=== PATIENT | female | born 1950 | race Caucasian/White ===

== ENCOUNTER 2020-08-11 10:06 | Emergency (ER) | payer MEDICARE, OTHER ==
[2020-08-11] MEDS: Sodium Chloride 0.9% 10 ML Syringe FLUSH PRN ×2 (10:15→11:43)
[2020-08-11] MEDS ORDERED: cloNIDine 0.1 MG Tab PO ONE (10:24)
--- NOTE | 2020-08-11 10:29 | EDM.PDOC ---
ED HPI GENERAL MEDICAL PROBLEM - General Stated Complaint: HIGH BP Time Seen by Provider: 08/11/20 10:15 Source of Information: Reports: Patient History Limitations: Reports: No Limitations - History of Present Illness INITIAL COMMENTS - FREE TEXT/NARRATIVE: c/o inc'd BP not seen a doctor in several years, went to have 4 teeth extracted with oral surgeon in [place] last wk and BP was 200/158 with repeat 180/140, surgery was not done pending tx of BP pt says she has no PCP, went to Patti James at clinic this AM who sent pt here, BP 266/108 on arrival at ED says she feels fine, no BARNES had been on BP med in past, then last 75 lbs and med was stopped, has gained the wt back SH: never , no children, 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[employer], then worked 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 at [employer], retired 1y ago - Related Data Allergies Allergy/AdvReac Type Severity Reaction Status Date / Time Penicillins Allergy Other Verified 08/11/20 11:50 Home Meds: Home Meds amLODIPine [Norvasc] 5 mg PO DAILY #30 tab 08/11/20 [Rx] lisinopriL [Prinivil] 5 mg PO DAILY #30 tab 08/11/20 [Rx] ED ROS GENERAL - Review of Systems Review Of Systems: See Below Constitutional: Reports: No Symptoms HEENT: Reports: No Symptoms Respiratory: Reports: No Symptoms Cardiovascular: Reports: No Symptoms Endocrine: Reports: No Symptoms GI/Abdominal: Reports: No Symptoms : Reports: No Symptoms Musculoskeletal: Reports: No Symptoms Skin: Reports: No Symptoms Neurological: Reports: No Symptoms Psychiatric: Reports: No Symptoms Hematologic/Lymphatic: Reports: No Symptoms Immunologic: Reports: No Symptoms ED EXAM, GENERAL - Physical Exam Exam: See Below Exam Limited By: No Limitations General Appearance: Alert, WD/WN, No Apparent Distress Eye Exam: Bilateral Eye: EOMI, PERRL Ears: Hearing Grossly Normal Nose: Normal Inspection Throat/Mouth: Normal Inspection, Normal Lips, Normal Teeth, Normal Voice, No Airway Compromise Head: Atraumatic, Normocephalic Neck: Normal Inspection, Supple, Non-Tender, Full Range of Motion Respiratory/Chest: No Respiratory Distress, Lungs Clear, Normal Breath Sounds, Chest Non-Tender Cardiovascular: Regular Rate, Rhythm, No Edema, No Gallop, No Murmur GI/Abdominal: Soft, Non-Tender, No Distention Back Exam: Normal Inspection, Full Range of Motion, NT Extremities: Normal Inspection, Normal Range of Motion, Non-Tender, No Pedal Edema Neurological: Alert, Oriented, CN II-XII Intact, Normal Cognition, No Motor/Sensory Deficits Psychiatric: Normal Affect, Normal Mood Skin Exam: Warm, Dry, Intact, Normal Color, No Rash Lymphatic: No Adenopathy #1 Interpretation EKG Interpretation Comments: SR, EKG criteria for LAE and LVH c/w poorly controlled HTN, no comparison, no evidence acute ischemia Course - Vital Signs Last Recorded V/S: Last Vital Signs Temp 37.1 C 08/11/20 10:10 Pulse 96 08/11/20 10:10 Resp 18 08/11/20 10:10 BP 266/108 H 08/11/20 10:31 Pulse Ox 97 08/11/20 10:10 - Orders/Labs/Meds Orders: Active Orders 24 hr Category Date Time Status EKG Documentation Completion [RC] ASDIRECTED Care 08/11/20 10:25 Active GLYCOSYLATED HEMOGLOBIN,HGBA1C [CHEM] Stat Lab 08/11/20 12:29 Ordered EKG 12 Lead [EK] Routine Ther 08/11/20 10:24 Ordered Labs: Laboratory Tests 08/11/20 08/11/20 08/11/20 Range/Units 10:46 10:46 10:46 WBC 5.9 (3.0-10.3) x10-3/uL RBC 4.15 (3.60-5.20) x10(6)uL Hgb 13.4 (11.4-15.5) g/dL Hct 40.4 (34.2-48.2) % MCV 97.2 (76.7-100.5) fL MCH 32.3 (23.9-33.9) pg MCHC 33.3 (31.9-34.8) g/dL RDW 13.5 (12.3-16.5) % Plt Count 152 (151-488) x10(3)uL MPV 9.0 (7.1-12.4) fL Neut % (Auto) 81.4 H (30.8-76.2) % Lymph % (Auto) 9.3 L (18.4-52.1) % [place] % (Auto) 7.1 (4.4-15.7) % Eos % (Auto) 1.9 (0.6-8.1) % Baso % (Auto) 0.3 (0.2-1.5) % Neut # (Auto) 4.8 (1.5-6.3) x10-3/uL Lymph # (Auto) 0.5 L (1.0-4.4) x10-3/uL [place] # (Auto) 0.4 (0.3-1.0) x10-3/uL Eos # (Auto) 0.1 (0.0-0.8) x10-3/uL Baso # (Auto) 0.0 (0.0-0.1) x10-3/uL Sodium 141 (135-145) mmol/L Potassium 4.1 (3.5-5.3) mmol/L Chloride 102 (100-110) mmol/L Carbon Dioxide 27 (21-32) mmol/L BUN 29 H (7-18) mg/dL Creatinine 1.1 H (0.55-1.02) mg/dL Est Cr Clr Drug Dosing TNP Estimated GFR (MDRD) 49 L (>60) BUN/Creatinine Ratio 26.4 H (9-20) Glucose 160 H (80-116) mg/dL Calcium 9.1 (8.6-10.2) mg/dL Total Bilirubin 0.7 (0.1-1.3) mg/dL AST 15 (5-25) IU/L ALT 27 (12-36) U/L Alkaline Phosphatase 90 (56-112) IU/L Total Protein 7.3 (6.0-8.0) g/dL Albumin 4.0 (3.2-4.6) g/dL Globulin 3.3 g/dL Albumin/Globulin Ratio 1.2 TSH, Ultra Sensitive 1.81 (0.36-3.74) IU/mL Meds: Medications Discontinued Medications Generic Name Dose Route Start Last Admin Trade Name Freq PRN Reason Stop Dose Admin Clonidine HCl 0.1 mg 08/11/20 10:24 08/11/20 10:31 Clonidine 0.1 Mg Tab PO 08/11/20 10:25 0.1 mg ONETIME ONE Administration Diltiazem HCl 20 mg 08/11/20 11:19 08/11/20 11:40 Diltiazem 25 Mg/5 Ml Sdv IVPUSH 08/11/20 11:20 20 mg ONETIME ONE Administration - Re-Assessments/Exams Free Text/Narrative Re-Assessment/Exam: 08/11/20 12:39 BP did not change after clonidine 0.1 mg PO however, it quickly came down to 191/68 after dilt 20 mg IV as she does seem to respond well to meds, will begin amlodopine 5 mg and lisinopril 5 mg daily does not have refractory htn, rather has untreated longstanding essential htn risk of pheo or renovascular htn is low end stage injury to heart and kidneys d/w pt A1C pending pt agrees to close f/u with PCP Departure - Departure Time of Disposition: 12:31 Disposition: Home, Self-Care 01 Condition: Good Clinical Impression: Hypertensive urgency, Left atrial enlargement, Left ventricular hypertrophy by electrocardiogram, Renal failure, Hyperglycemia Prescriptions: amLODIPine [Norvasc] 5 mg PO DAILY #30 tab lisinopriL [Prinivil] 5 mg PO DAILY #30 tab Referrals: PCP,None [Primary Care Provider] - Additional Instructions: For blood pressure, take amlodipine 5 mg 1 tab daily. For blood pressure, take lisinopril 5 mg 1 tab daily. Begin those medications today. Rest for the next several days as it is common to feel tired while your body is readjusting to a lower blood pressure. Obtain a blood pressure cuff. Check your pressure at home 2 times a day, record the readings, and take them with you to your next appointment. See your doctor in 3 days for further evaluation. Return to Emergency Department if you are feeling worse or your systolic blood pressure is over 220 or your diastolic blood pressure is over 120 even when repeated twice. Sepsis Event Note (ED) - Focused Exam Vital Signs: Vital Signs Temp Pulse Resp BP BP Pulse Ox 08/11/20 10:31 266/108 H 08/11/20 10:10 37.1 C 96 18 266/108 H 97 - My Orders Last 24 Hours: My Active Orders 08/11/20 10:24 EKG 12 Lead [EK] Routine 08/11/20 10:25 EKG Documentation Completion [RC] ASDIRECTED 08/11/20 12:29 GLYCOSYLATED HEMOGLOBIN,HGBA1C [CHEM] Stat - Assessment/Plan Last 24 Hours: My Active Orders 08/11/20 10:24 EKG 12 Lead [EK] Routine 08/11/20 10:25 EKG Documentation Completion [RC] ASDIRECTED 08/11/20 12:29 GLYCOSYLATED HEMOGLOBIN,HGBA1C [CHEM] Stat
[2020-08-11] MEDS ORDERED: Diltiazem 25 MG/5 ML SDV IVPUSH ONE (11:19)
== END 2020-08-11 13:05 | disposition home or self-care (01) ==
LOC: FB.ED 10:06
DX: I16.0 Hypertensive urgency (principal); I77.89 Other specified disorders of arteries and arterioles; R94.31 Abnormal electrocardiogram [ECG] [EKG]; N19 Unspecified kidney failure; R73.9 Hyperglycemia, unspecified; Z79.899 Other long term (current) drug therapy; Z88.0 Allergy status to penicillin
CPT/HCPCS: 36415; 80053; 83036; 84443; 85025; 93005; 96374; 99283; A9270; J3490

== ENCOUNTER 2020-08-12 10:51 | Emergency (ER) | payer MEDICARE, OTHER ==
[2020-08-12] MEDS ORDERED: Labetalol 20 MG/4 ML Syringe IVPUSH PRN (11:22)
--- NOTE | 2020-08-12 11:47 | EDM.PDOC ---
ED HPI GENERAL MEDICAL PROBLEM - General Chief Complaint: Cardiovascular Problem Stated Complaint: HIGH BP Time Seen by Provider: 08/12/20 10:55 Source of Information: Reports: Patient History Limitations: Reports: No Limitations - History of Present Illness INITIAL COMMENTS - FREE TEXT/NARRATIVE: Patient presented to the ED because of an elevated BP. She was seen in the clinic yesterday and was started on amlodipine 10 mg and lisinopril 5 mg daily for her HTN. She denies having any headache, dizziness, chest pain, dyspnea or edema. Ling is otherwise healthy and has not seen a doctor for 20 years. Treatments MEDICAL TRANSLATOR: Reports: Other Medication(s) Other Treatments MEDICAL TRANSLATOR: Lisinopril and Amlodipine - Related Data Allergies Allergy/AdvReac Type Severity Reaction Status Date / Time Penicillins Allergy Other Verified 08/11/20 11:50 Home Meds: Home Meds amLODIPine [Norvasc] 5 mg PO DAILY #30 tab 08/11/20 [Rx] lisinopriL [Prinivil] 5 mg PO DAILY #30 tab 08/11/20 [Rx] Past Medical History Cardiovascular History: Reports: Hypertension Endocrine/Metabolic History: Reports: Obesity/BMI 30+ - Past Surgical History HEENT Surgical History: Reports: Tonsillectomy Social & Family History - Tobacco Use Tobacco Use Status *Q: Never Tobacco User - Caffeine Use Caffeine Use: Reports: Coffee, Soda - Alcohol Use Days Per Week of Alcohol Use: 5 Number of Drinks Per Day: 1 Total Drinks Per Week: 5 - Recreational Drug Use Recreational Drug Use: No ED ROS GENERAL - Review of Systems Review Of Systems: See Below Constitutional: Reports: No Symptoms HEENT: Reports: No Symptoms Respiratory: Reports: No Symptoms Cardiovascular: Reports: No Symptoms Endocrine: Reports: No Symptoms GI/Abdominal: Reports: No Symptoms : Reports: No Symptoms Musculoskeletal: Reports: No Symptoms Skin: Reports: No Symptoms Neurological: Reports: No Symptoms ED EXAM, GENERAL - Physical Exam Exam: See Below Exam Limited By: No Limitations General Appearance: Alert, No Apparent Distress Ears: Normal External Exam, Normal [place] Nose: Normal Inspection, Normal Mucosa, No Blood Throat/Mouth: Normal Inspection, Normal Lips Head: Atraumatic, Normocephalic Neck: Normal Inspection, Supple, Non-Tender, Full Range of Motion Respiratory/Chest: No Respiratory Distress, Lungs Clear, Normal Breath Sounds, No Accessory Muscle Use, Chest Non-Tender Cardiovascular: Normal Peripheral Pulses, Regular Rate, Rhythm, No Edema, No Gallop, No JVD, No Murmur, No Rub GI/Abdominal: Normal Bowel Sounds, Soft, Non-Tender, No Organomegaly, No Distention, No Abnormal Bruit, No Mass Back Exam: Normal Inspection, Full Range of Motion Extremities: Normal Inspection, Normal Range of Motion, Non-Tender, No Pedal Edema, Normal Capillary Refill Neurological: Alert, Oriented, CN II-XII Intact, Normal Cognition, Normal Gait #1 Interpretation EKG Date: 08/12/20 Time: 11:39 Rhythm: NSR Rate (Beats/Min): 76 [place]: Normal P-Wave: Present QRS: Normal ST-T: Other (inverted) QT: Normal Comparison: No Change (NSR LVH) EKG Interpretation Comments: NSR LVH Course - Vital Signs Text/Narrative:: Lab/EKG result was reviewed and discussed with patient ASA 324 mg po x1 Hydralazine 20 mg IV x1 Labetalol 20 mg IV x 2 doses amlodipine 10 mg po x1 lisinopril 20 mg PO x1 Patient's trop was elevated 72 and 69 but she refused to be admitted for serial cardiac enzymes and monitoring. She said she has a 1:30 pm appointment tomorrow and will just follow up. I explained to her the consequences of not bringing down her BP which include: CVA, CHF,OK,Kidney failure and patient is aware of it. Last Recorded V/S: Last Vital Signs Temp 36.7 C 08/12/20 10:51 Pulse 69 08/12/20 14:31 Resp 20 08/12/20 14:31 BP 172/70 H 08/12/20 14:31 Pulse Ox 100 08/12/20 14:31 - Orders/Labs/Meds Orders: Active Orders 24 hr Category Date Time Status EKG 12 Lead [EK] Routine Ther 08/12/20 11:21 Ordered Labs: Laboratory Tests 08/12/20 08/12/20 08/12/20 Range/Units 11:30 11:30 11:30 WBC 5.0 (3.0-10.3) x10-3/uL RBC 4.20 (3.60-5.20) x10(6)uL Hgb 13.6 (11.4-15.5) g/dL Hct 40.7 (34.2-48.2) % MCV 96.9 (76.7-100.5) fL MCH 32.3 (23.9-33.9) pg MCHC 33.3 (31.9-34.8) g/dL RDW 13.5 (12.3-16.5) % Plt Count 165 (151-488) x10(3)uL MPV 8.9 (7.1-12.4) fL Neut % (Auto) 80.8 H (30.8-76.2) % Lymph % (Auto) 9.6 L (18.4-52.1) % [place] % (Auto) 7.2 (4.4-15.7) % Eos % (Auto) 2.0 (0.6-8.1) % Baso % (Auto) 0.4 (0.2-1.5) % Neut # (Auto) 4.1 (1.5-6.3) x10-3/uL Lymph # (Auto) 0.5 L (1.0-4.4) x10-3/uL [place] # (Auto) 0.4 (0.3-1.0) x10-3/uL Eos # (Auto) 0.1 (0.0-0.8) x10-3/uL Baso # (Auto) 0.0 (0.0-0.1) x10-3/uL PT (9.0-11.1) sec INR (1.00-1.24) APTT (24.4-33.2) SECONDS Sodium 141 (135-145) mmol/L Potassium 4.0 (3.5-5.3) mmol/L Chloride 101 (100-110) mmol/L Carbon Dioxide 28 (21-32) mmol/L BUN 22 H (7-18) mg/dL Creatinine 1.0 (0.55-1.02) mg/dL Est Cr Clr Drug Dosing 49.00 mL/min Estimated GFR (MDRD) 55 L (>60) BUN/Creatinine Ratio 22.0 H (9-20) Glucose 139 H (80-116) mg/dL Calcium 9.6 (8.6-10.2) mg/dL Total Bilirubin 1.0 (0.1-1.3) mg/dL AST 20 D (5-25) IU/L ALT 31 D (12-36) U/L Alkaline Phosphatase 93 (56-112) IU/L Troponin I 72.4 H* (4.0-60.3) pg/mL Total Protein 7.3 (6.0-8.0) g/dL Albumin 4.0 (3.2-4.6) g/dL Globulin 3.3 g/dL Albumin/Globulin Ratio 1.2 08/12/20 08/12/20 Range/Units 13:20 14:05 WBC (3.0-10.3) x10-3/uL RBC (3.60-5.20) x10(6)uL Hgb (11.4-15.5) g/dL Hct (34.2-48.2) % MCV (76.7-100.5) fL MCH (23.9-33.9) pg MCHC (31.9-34.8) g/dL RDW (12.3-16.5) % Plt Count (151-488) x10(3)uL MPV (7.1-12.4) fL Neut % (Auto) (30.8-76.2) % Lymph % (Auto) (18.4-52.1) % [place] % (Auto) (4.4-15.7) % Eos % (Auto) (0.6-8.1) % Baso % (Auto) (0.2-1.5) % Neut # (Auto) (1.5-6.3) x10-3/uL Lymph # (Auto) (1.0-4.4) x10-3/uL [place] # (Auto) (0.3-1.0) x10-3/uL Eos # (Auto) (0.0-0.8) x10-3/uL Baso # (Auto) (0.0-0.1) x10-3/uL PT 10.6 (9.0-11.1) sec INR 0.98 L (1.00-1.24) APTT 23.7 L (24.4-33.2) SECONDS Sodium (135-145) mmol/L Potassium (3.5-5.3) mmol/L Chloride (100-110) mmol/L Carbon Dioxide (21-32) mmol/L BUN (7-18) mg/dL Creatinine (0.55-1.02) mg/dL Est Cr Clr Drug Dosing mL/min Estimated GFR (MDRD) (>60) BUN/Creatinine Ratio (9-20) Glucose (80-116) mg/dL Calcium (8.6-10.2) mg/dL Total Bilirubin (0.1-1.3) mg/dL AST (5-25) IU/L ALT (12-36) U/L Alkaline Phosphatase (56-112) IU/L Troponin I 69.6 H* (4.0-60.3) pg/mL Total Protein (6.0-8.0) g/dL Albumin (3.2-4.6) g/dL Globulin g/dL Albumin/Globulin Ratio Meds: Medications Discontinued Medications Generic Name Dose Route Start Last Admin Trade Name Freq PRN Reason Stop Dose Admin Amlodipine Besylate 5 mg 08/12/20 13:50 08/12/20 14:03 Amlodipine 5 Mg Tab PO 08/12/20 13:51 5 mg NOW STA Administration Aspirin 324 mg 08/12/20 13:10 08/12/20 13:40 Aspirin 81 Mg Tab.Chew PO 08/12/20 13:11 324 mg ONETIME ONE Administration Hydralazine HCl 20 mg 08/12/20 12:00 08/12/20 12:10 Hydralazine 20 Mg/Ml Sdv IVPUSH 08/12/20 12:01 20 mg NOW STA Administration Labetalol HCl 20 mg 08/12/20 11:22 08/12/20 12:44 Labetalol 20 Mg/4 Ml Syringe IVPUSH 20 mg ONETIME PRN Administration Hypertension Protocol Labetalol HCl 20 mg 08/12/20 13:52 08/12/20 14:02 Labetalol 20 Mg/4 Ml Syringe IVPUSH 08/12/20 13:53 20 mg NOW STA Administration Protocol Lisinopril 20 mg 08/12/20 13:50 08/12/20 14:06 Lisinopril 20 Mg Tab PO 08/12/20 13:51 20 mg NOW STA Administration Departure - Departure Time of Disposition: 14:40 Disposition: Home, Self-Care 01 Condition: Good Clinical Impression: Hypertensive crisis, Elevated troponin Instructions: Troponin Test, Hypertension, Adult, [id number] Referrals: PCP,None [Primary Care Provider] - Forms: ED Department Discharge Additional Instructions: Please read discharge instructions on hypertensive crisis Low salt,low fat diet,exercise Take amlodipine 10 mg daily (morning) Lisinopril 40 mg daily(morning, 8 of the 5 mg tablets of lisinopril that you have) Take an extra 20 mg dose of lisinopril as soon as you get home(4 of the 5 mg tablets that you have) Keep your appointment to be seen by your doctor tomorrow Sepsis Event Note (ED) - Evaluation Sepsis Screening Result: No Definite Risk - My Orders Last 24 Hours: My Active Orders 08/12/20 11:21 EKG 12 Lead [EK] Routine - Assessment/Plan Last 24 Hours: My Active Orders 08/12/20 11:21 EKG 12 Lead [EK] Routine
[2020-08-12] MEDS ORDERED: hydrALAZINE 20 MG/ML SDV IVPUSH STA (12:00)
[2020-08-12] MEDS ORDERED: Aspirin 81 MG Tab.Chew PO ONE (13:10)
[2020-08-12] MEDS ORDERED: amLODIPine 5 MG Tab PO STA (13:50)
[2020-08-12] MEDS ORDERED: Lisinopril 20 MG Tab PO STA (13:50)
[2020-08-12] MEDS ORDERED: Labetalol 20 MG/4 ML Syringe IVPUSH STA (13:52)
== END 2020-08-12 14:55 | disposition home or self-care (01) ==
LOC: FB.ED 10:51
DX: I16.9 Hypertensive crisis, unspecified (principal); R79.89 Other specified abnormal findings of blood chemistry; I10 Essential (primary) hypertension; E66.9 Obesity, unspecified; Z68.38 Body mass index [BMI] 38.0-38.9, adult; Z88.0 Allergy status to penicillin; Z79.899 Other long term (current) drug therapy
CPT/HCPCS: 36415; 80053; 84484; 85025; 85610; 85730; 93005; 96374; 96375; 96376; 99283; A9270; J0360; J3490